=== PATIENT | female | born 1945 | race Caucasian/White ===

== ENCOUNTER 2019-01-19 08:34 | Emergency (ER) | payer OTHER ==
[2019-01-19 09:01] VITALS: BP 122/77
--- NOTE | 2019-01-19 09:06 | UC ---
Skin Complaint HPI - HPI Summary HPI Summary: 74-year-old female who has a red open wound to her left lower leg with some pus drainage. She's had it approximately a week to 10 days. She normally gets blisters on her lower leg and she states this one got infected. Normally they resolve on their own. She is not a diabetic. - History of Current Complaint Chief Complaint: UCSkin Time Seen by Provider: 01/19/19 08:47 Stated Complaint: LEFT LEG SKIN CONCERN Hx Obtained From: Patient ?: No Onset/Duration: Gradual Onset Skin Exposure Onset/Duration: Days Ago Timing: Constant Onset Severity: Mild Current Severity: Moderate Pain Intensity: 0 Location: Other - Left lower anterior leg. Character: Swelling, Redness Aggravating Factor(s): Clothing, Touch Alleviating Factor(s): Nothing Associated Signs & Symptoms: Positive: Drainage - Yellow pus drainage., Tenderness - Allergy/Home Medications Allergies/Adverse Reactions: Allergies Allergy/AdvReac Type Severity Reaction Status Date / Time No Known Allergies Allergy Verified 01/19/19 08:50 Home Medications: Home Medications Aspirin [Aspir-Low] 81 mg PO DAILY 01/19/19 [History Confirmed 01/19/19] Atorvastatin* [Lipitor*] 10 mg PO DAILY 01/19/19 [History Confirmed 01/19/19] [place] Sal[place] 1 dose TOPICAL BID PRN 01/19/19 [History Confirmed 01/19/19] Cholecalciferol (Vitamin D3) [Vitamin D3] 1 tab PO DAILY 01/19/19 [History Confirmed 01/19/19] Gabapentin CAP(*) [Neurontin 300 CAP(*)] 300 mg PO TID 01/19/19 [History Confirmed 01/19/19] Losartan TAB* [Cozaar TAB*] 50 mg PO DAILY 01/19/19 [History Confirmed 01/19/19] Pantoprazole TAB * [Protonix TAB*] 40 mg PO DAILY 01/19/19 [History Confirmed ] Torsemide TAB* [Demadex*] 10 mg PO DAILY 01/19/19 [History Confirmed 01/19/19] PMH/Surg Hx/FS Hx/Imm Hx Previously Healthy: Yes Cardiovascular History: Hypertension GI/ History: Ulcer - Gastric ulcer - Surgical History Surgical History: Yes Surgery Procedure, Year, and Place: hysterectomy - Family History Known Family History: Positive: Non-Contributory - Social History Occupation: Retired Alcohol Use: None Substance Use Type: None Smoking Status (MU): Former Smoker When Did the Patient Quit Smoking/Using Tobacco: 2012 Review of Systems All Other Systems Reviewed And Are Negative: Yes Skin: Positive: Other - Patient has a wound infection on her left anterior lower leg. She usually gets some blisters on her legs which resolved spontaneously however this one became infected. Musculoskeletal: Positive: Edema - Patient normally has lower leg and ankle edema. Is Patient Immunocompromised?: No Physical Exam Triage Information Reviewed: Yes Appearance: Well-Appearing, No Pain Distress, Well-Nourished Vital Signs: Initial Vital Signs Temp 98 F 01/19/19 08:52 Pulse 88 01/19/19 08:52 Resp 24 01/19/19 08:52 BP 122/77 01/19/19 08:52 Pulse Ox 97 01/19/19 08:52 Vital Signs Reviewed: Yes Musculoskeletal: Positive: Strength Intact, ROM Intact, Edema @ - Lower legs and ankles with chronic edema. Neurological: Positive: Alert, Other: - Good peripheral pulses neuro sensation capillary refill, approximately 2+ pitting edema ankles and feet. Psychological Exam: Normal - The wound is on the anterior left lower leg approximately 4.0 cm in length and 1.0 cm in width surrounded by approximately 5 mm of erythema with yellow purulent drainage present at the site but not actively being able to be expressed Skin: Positive: Other - No streaking up the leg. Course/Dx - Course Course Of Treatment: The patient is comfortable here. I am referring her to the wound care clinic for further evaluation and care. - Diagnoses Provider Diagnosis: Cellulitis, leg Discharge - Sign-Out/Discharge Documenting (check all that apply): Patient Departure All imaging exams completed and their final reports reviewed: No Studies - Discharge Plan Condition: Stable Disposition: HOME Prescriptions: Cephalexin CAP* [Keflex 500 CAP*] 500 mg PO TID 10 Days #30 cap Patient Education Materials: Cellulitis (DC) Referrals: Annemarie Bermudez MD [Primary Care Provider] - Additional Instructions: Elevate as much as possible, go to the wound care clinic and make an appointment for evaluation and treatment of the wound. Follow-up with your primary care provider if no improvement in 7-10 days. If you develop fever, chills, worsening redness and swelling of your leg, go to the emergency room. - Billing Disposition and Condition Condition: STABLE Disposition: Home - Attestation Statements Provider Attestation: This patient was not seen by me. I was available for consult. JONO
== END 2019-01-19 09:16 | disposition home or self-care (01) ==
LOC: UCCORT 08:34
DX: L03.116 Cellulitis of left lower limb (principal); I10 Essential (primary) hypertension; K25.9 Gastric ulcer, unspecified as acute or chronic, without hemorrhage or perforation; Z87.891 Personal history of nicotine dependence
CPT/HCPCS: 99202; G0463